=== PATIENT | male | born 1985 | race Two or more races ===

== ENCOUNTER 2024-01-17 01:39 | Emergency (ER) | payer OTHER ==
[~2024-01-17] VITALS: Ht 180.3 cm; Wt 81.8 kg
[2024-01-17 01:48] VITALS: BP 143/100; PULSE 96; RESP 16; TEMP 98.3
[2024-01-17] MEDS ORDERED: IBUP-1493 PO (02:42)
[2024-01-17] MEDS ORDERED: SULF-261 PO (02:42)
[2024-01-17] MEDS ORDERED: CEPH-558 PO (02:42)
[2024-01-17] MEDS: LIDOCAINE/PF 1% 2 ML VIAL IM ONE (02:53)
[2024-01-17] MEDS: CefTRIAXone SODIUM 1 GM/VIAL IM ONE (02:53)
== END 2024-01-17 02:56 | disposition home or self-care (01) ==
LOC: EMS 01:43
DX: L03.211 Cellulitis of face (principal); F17.210 Nicotine dependence, cigarettes, uncomplicated
CPT/HCPCS: 99283; 96372; J0696; J3490